=== PATIENT | female | born 1990 | race Caucasian/White ===

== ENCOUNTER 2018-11-24 09:34 | Outpatient (CLI) | payer BC, SELFPAY ==
[2018-11-24 11:12] LABS: Cholesterol 179 mg/dL (50-200); Glucose 81 mg/dL (70-100); HDL Cholesterol 66 mg/dL (40-60); LDL CHOLESTEROL 91 mg/dL (<100); TSH (W/Ref FT4) 2.62 uIU/mL (0.358-3.74); Triglyceride 78 mg/dL (30-150)
== END 2018-11-24 09:54 ==
PROVIDERS: PCP General Practice; Visit Provider General Practice
DX: Z00.00 Encounter for general adult medical examination without abnormal findings (principal); R53.83 Other fatigue; L65.9 Nonscarring hair loss, unspecified
CPT/HCPCS: 36415; 80061; 82947; 83721; 84443

== ENCOUNTER 2019-01-18 16:24 | Outpatient (REF) | payer BC, SELFPAY ==
--- NOTE | 2019-01-18 16:30 | PAPFT_PTH ---
PATIENT: Gabriela Rios LOC: [facility] U#:[id number] AGE/SX: 28/F ROOM: RE01/18/[address]: Stephon Mcduffie MD : [id number] BED: DIS: 01/18/2019 SPEC #: [id number] RECD: 01/18/19 18:19 STATUS: KEERTHINatasha REKristal #: [id number] NEPTALI: 01/18/19 16:[address]: Stephon Mcduffie DEPT: [facility] Cytology RECD BY: Tamia Troy ENTERED: 01/18/19 18:19 SP TYPE: PAPFT OTHR DR: Jordan Donohue Tissues: 1 - CX/ENDOCX FOR PAP SMEARS Procedures: PAP THIN PREP/[facility] Screening Comments: [id number]
== END 2019-01-18 16:44 ==
LOC: LBN 16:24
PROVIDERS: PCP General Practice; Visit Provider Obstetrics & Gynecology
DX: Z12.4 Encounter for screening for malignant neoplasm of cervix (principal)
CPT/HCPCS: 88142

== ENCOUNTER 2019-06-28 11:19 | Outpatient (CLI) | payer BC, SELFPAY ==
[2019-06-28 12:40] LABS: HCG Quant, Pregnancy < 1 mIU/mL (1-3); TSH (W/Ref FT4) 2.16 uIU/mL (0.36-3.74)
[2019-07-01 11:16] LABS: Prolactin 5.5 ng/ml
== END 2019-06-28 11:39 ==
PROVIDERS: PCP General Practice; Visit Provider Obstetrics & Gynecology
DX: N92.0 Excessive and frequent menstruation with regular cycle (principal); N91.2 Amenorrhea, unspecified
CPT/HCPCS: 36415; 84146; 84443; 84702

== ENCOUNTER 2019-12-04 02:18 | Outpatient (CLI) | payer BC, SELFPAY ==
--- NOTE | 2019-12-04 | DI.US_ITS ---
EXAM: US SOFT TISS ABD WALL/LOW BACK CLINICAL HISTORY: UMBILICAL HERNIA, K42.9 TECHNIQUE: Ultrasound performed using standard protocol. COMPARISON: OB ASSESSMENT - WEIGHT/SINDHU from 03/20/2017 FINDINGS: Ultrasound examination of the anterior abdominal wall was obtained to evaluate question umbilical/Per i umbilical palpable abnormality. There is a probable umbilical hernia measuring up to about 3.8 cm in diameter. No definite bowel contents. The hernia appears non reducible and is more prominent on Valsalva imaging. IMPRESSION: Findings suggesting umbilical hernia, likely fat containing, bowel contents not excluded. DATA REPOSITORY:
== END 2019-12-04 02:38 ==
PROVIDERS: PCP Nurse Practitioner Family; Visit Provider Nurse Practitioner Family
DX: K42.9 Umbilical hernia without obstruction or gangrene (principal)
CPT/HCPCS: 76705

== ENCOUNTER 2020-02-14 10:32 | Outpatient (REF) | payer BC, SELFPAY ==
[2020-02-14 11:18] LABS: Glucose,1 Hr (Glucola) 97 mg/dL (80-140)
[2020-02-14 11:31] LABS: Abs Immature Grans 0.01 k/cumm (0.0-0.09); Absolute Basophil Count 0.01 k/cumm (0.0-0.2); Absolute Eosinophil Count 0.06 k/cumm (0.0-0.7); Absolute Lymphocyte Count 1.13 k/cumm (1.2-3.4); Absolute Monocyte Count 0.37 k/cumm (0.11-0.7); Absolute Neutrophil Count 5.36 k/cumm (1.2-6.7); Basophils % 0.1; Eosinophils % 0.9; HCT 41.5 % (36.0-46.0); HGB 13.9 g/dL (12.0-15.5); Immature Grans % 0.1 %; Lymphocytes % 16.3; Mean Corp. HGB Concentration 33.5 g/dL (32.0-36.0); Mean Corpuscular Hemoglobin 28.1 pg (27.0-33.0); Mean Platelet Volume 10.9 fL (8.0-11.0); Monocytes % 5.3; Neutrophils % 77.3; Platelet Count 234 x1000/uL (130-400); RBC 4.94 m/cumm (4.00-5.20); RBC Distribution Width 12.3 % (11.7-14.6); White Blood Cell Count 6.94 k/cumm (4.4-10.8)
[2020-02-14 11:46] LABS: TSH (W/Ref FT4) 1.28 uIU/mL (0.36-3.74)
[2020-02-14 13:48] LABS: *AMPHETAMINES SCREEN URINE Negative (Negative); *BARBITURATES SCREEN URINE Negative (Negative); *BENZODIAZEPINES SCREEN URINE Negative (Negative); Cannabinoids THC POSITIVE (Negative); Cocaine Screen,Urine Negative (Negative); METHADONE URINE SCREEN Negative (Negative); OPIATES URINE SCREEN Negative (Negative)
[2020-02-14 13:49] LABS: Tricyclic Antidepressants Negative (Negative)
[2020-02-17 09:45] LABS: Syphilis Total Ab w/Reflex Nonreactive (Nonreactive)
[2020-02-17 10:45] LABS: Hepatitis B Surface Ag Negative (Negative)
[2020-02-17 11:13] LABS: Hepatitis C Ab w Rflx HCV PCR Negative (Negative)
[2020-02-17 11:52] LABS: HIV-1/2 Ag & Ab Screen Negative (Negative)
[2020-02-17 13:28] LABS: Rubella IgG Ab (UVM) Positive (See Note); Varicella IgG Antibody Negative (See Note)
[2020-02-18 09:10] LABS: Chlamydia Result Negative (Negative); GC Result Negative (Negative)
[2020-02-20 16:49] LABS: Buprenorphine Negative; Norbuprenorphine Negative
== END 2020-02-14 10:52 ==
LOC: LBN 10:32
PROVIDERS: PCP Nurse Practitioner Family; Visit Provider Advanced Practice Midwife
DX: Z34.91 Encounter for supervision of normal pregnancy, unspecified, first trimester (principal); Z11.59 Encounter for screening for other viral diseases; Z11.3 Encounter for screening for infections with a predominantly sexual mode of transmission; Z11.4 Encounter for screening for human immunodeficiency virus [HIV]; Z01.84 Encounter for antibody response examination
CPT/HCPCS: 80307; 82950; 86787; 86803; 86850; 86900; 86901; 87340; 87389; 87491; 87591; 84443; 85025; 86762; 86780; 87086

== ENCOUNTER 2020-02-17 09:18 | Outpatient (CLI) | payer BC, SELFPAY ==
--- NOTE | 2020-02-17 07:00 | DI.US_ITS ---
EXAM: US OB 1ST TRIMESTER CLINICAL HISTORY: ? viability TECHNIQUE: Ultrasound performed using standard protocol. COMPARISON: US US SOFT TISS ABD WALL/LOW BACK from 12/04/2019 FINDINGS: Ob ultrasound was performed utilizing 1st trimester protocol. There is a single viable intrauterine gestation with crown-rump length measurements consistent with gestational age of 11 weeks 4 days and EDC of 09/03/2020. Trophoblastic tissue is unremarkable. heart rate is 173 BPM. Left ovary contains corpus luteum cyst. IMPRESSION: DATA REPOSITORY:
== END 2020-02-17 09:38 ==
PROVIDERS: PCP Nurse Practitioner Family; Visit Provider Obstetrics & Gynecology
DX: Z34.91 Encounter for supervision of normal pregnancy, unspecified, first trimester (principal); Z3A.11 11 weeks gestation of pregnancy; N83.12 Corpus luteum cyst of left ovary
CPT/HCPCS: 76801

== ENCOUNTER 2020-03-13 09:26 | Outpatient (CLI) | payer BC, SELFPAY ==
[2020-03-17 10:25] LABS: AFP 30.4 ng/mL; Calculated age at EDD 30 years; Cigarette smoking status non-Smoker; GA used in risk estimate Dates estimate; INHIBIN 108 pg/mL; IVF Pregnancy No; Initial or repeat testing Initial testing; Insulin dependent diabetes No; Maternal Weight 163 lbs; Number of Fetuses 1; Physician Phone Number 802-748-7300; Prev Down(T21)/Trisomy Pregnan No; Prev Pregnancy w/NTD No; RECOMMENDED FOLLOW UP None.; Results Summary Normal risk; hCG, TOTAL 35.4 IU/mL; hCG, TOTAL MoM 0.77 MoM; uE3 0.65 ng/mL; uE3 MoM 1.29 MoM
== END 2020-03-13 09:46 ==
PROVIDERS: PCP Nurse Practitioner Family; Visit Provider Obstetrics & Gynecology
DX: Z34.91 Encounter for supervision of normal pregnancy, unspecified, first trimester (principal); Z36.89 Encounter for other specified antenatal screening
CPT/HCPCS: 81511

== ENCOUNTER 2020-04-06 01:37 | Outpatient (CLI) | payer BC, SELFPAY ==
--- NOTE | 2020-04-06 08:45 | DI.US_ITS ---
EXAM: US OB 2-3 TRIMESTER CLINICAL HISTORY: Anatomy survey, Z34.90. TECHNIQUE: Transabdominal obstetrical ultrasound performed. COMPARISON: US US OB 1ST TRIMESTER from 02/17/2020 FINDINGS: Transabdominal obstetrical ultrasound performed. FINDINGS: Number of fetuses: One. position: Breech heart rate: 150 bpm. Placental grade: 0-1 Placental location: Anterior. There is a marginal placenta previa. BIOMETRIC DATA: EFW: 270 grms 81% Composite Age: 19 weeks 1 day EDC by US: 08/30/2020 Heart Rate: 150BPM Amniotic fluid index: Amount of fluid is within normal limits. ANATOMICAL SURVEY: Four-chambered heart: Unremarkable. LVOT: Unremarkable. RVOT: Unremarkable. Left-sided stomach: Unremarkable. urinary bladder: Unremarkable. Bilateral kidneys: Unremarkable. Three-vessel cord: Unremarkable. Cord insertion: Unremarkable. Posterior fossa:Unremarkable. ventricles: Unremarkable. nose: Unremarkable. lips: Unremarkable. palate: Unremarkable. spine: Unremarkable. Two arms and two legs: Unremarkable. IMPRESSION: 1. Single live intrauterine gestation as above. 2. There is a marginal placenta previa. Follow-up obstetrical ultrasound is recommended. 3. Normal anatomic survey. DATA REPOSITORY:
== END 2020-04-06 01:57 ==
PROVIDERS: PCP Nurse Practitioner Family; Visit Provider Obstetrics & Gynecology
DX: Z34.82 Encounter for supervision of other normal pregnancy, second trimester (principal)
CPT/HCPCS: 76805

== ENCOUNTER 2020-04-23 13:22 | Outpatient (REF) | payer BC, SELFPAY ==
[2020-04-25 21:29] LABS: SARS-CoV-2 RNA Undetected (Undetected); SARS-CoV-2 Specimen Source Nasopharynx
== END 2020-04-23 13:42 ==
LOC: NCHCN 13:22
PROVIDERS: PCP Nurse Practitioner Family; Visit Provider Nurse Practitioner Family
DX: Z20.828 Contact with and (suspected) exposure to other viral communicable diseases (principal)
CPT/HCPCS: U0003

== ENCOUNTER 2020-06-02 00:38 | Outpatient (CLI) | payer BC, SELFPAY ==
--- NOTE | 2020-06-02 06:30 | DI.US_ITS ---
EXAM: US OB SINDHU WEIGHT CLINICAL HISTORY: growth and SINDHU,F/U MARGINAL PLACENTA PREVIA TECHNIQUE: Ultrasound performed using standard protocol. COMPARISON: US US OB 2-3 TRIMESTER from 04/06/2020 FINDINGS: Ob ultrasound was performed to re-evaluate low-lying placenta seen on prior examination. biome try today is consistent with gestational age of 20 weeks 0 days and EDC of August 25. Marginal pl acenta previa is again noted. There is a normal quantity of amniotic fluid and the SINDHU is 18. heart rate is identified at a rate of 143 BPM IMPRESSION: Persistent marginal placenta previa at 28 weeks gestational age. Appropriate follow-up studies reque sted. DATA REPOSITORY:
== END 2020-06-02 00:58 ==
PROVIDERS: PCP Nurse Practitioner Family; Visit Provider Obstetrics & Gynecology
DX: O44.23 Partial placenta previa NOS or without hemorrhage, third trimester (principal)
CPT/HCPCS: 76816

== ENCOUNTER 2020-06-18 04:37 | Outpatient (CLI) | payer BC, SELFPAY ==
[2020-06-18 09:35] LABS: Abs Immature Grans 0.06 10^3/uL (0.0-0.06); Absolute Basophil Count 0.03 10^3/uL (0.0-0.2); Absolute Eosinophil Count 0.07 10^3/uL (0.0-0.7); Absolute Lymphocyte Count 1.46 10^3/uL (1.2-3.4); Absolute Neutrophil Count 8.87 10^3/uL (1.2-6.7); Basophils % 0.3; Eosinophils % 0.6; HCT 37.5 % (36.0-46.0); HGB 12.2 g/dL (11.2-15.7); Immature Grans % 0.5; Lymphocytes % 13.2; MCH 28.2 pg (27.0-33.0); MCHC 32.5 % (32.0-36.0); MCV 86.8 fL (80-95); MPV 10.3 fL (8.0-11.0); Monocytes % 5.4; Nucleated RBC 0 %; Platelet Count 244 10^3/uL (130-400); RBC 4.32 10^6/uL (3.93-5.22); RDW 12.3 % (11.7-14.6); RDW-SD 39.2 fL; WBC 11.09 10^3/uL (4.4-10.8)
[2020-06-18 09:48] LABS: Glucose,1 Hr (Glucola) 100 mg/dL (80-140)
== END 2020-06-18 04:57 ==
PROVIDERS: PCP Nurse Practitioner Family; Visit Provider Obstetrics & Gynecology
DX: Z34.93 Encounter for supervision of normal pregnancy, unspecified, third trimester (principal); Z3A.28 28 weeks gestation of pregnancy
CPT/HCPCS: 36415; 82950; 85025

== ENCOUNTER 2020-06-30 01:00 | Outpatient (CLI) | payer BC, SELFPAY ==
--- NOTE | 2020-06-30 06:15 | DI.US_ITS ---
EXAM: US OB SINDHU WEIGHT CLINICAL HISTORY: placental location,marginal placenta previa,o44.20. COMPARISON: US US OB SINDHU WEIGHT from 06/02/2020 TECHNIQUE: Transabdominal obstetrical ultrasound was performed. FINDINGS: Sonographic images demonstrate a single intrauterine gestation. Sonographically assessed gestational is: 32 weeks 2 days Estimated date of delivery based on this ultrasound is: 23 August 2020 Estimated date of delivery based upon previous datin+ 4 weeks . heart rate motion is Dopplered at: 141 bpm. Cervical length 6.3 cm. Amniotic fluid index: 22.9 cm. Largest pocket of fluid measures 7.0 cm. Near the upper limit of normal. The placenta is anterior and the tip again is noted to lie directly adjacent to the internal os. IMPRESSION: Stable appearance of marginal placenta previa. Amniotic fluid index is at the upper limits of normal . DATA REPOSITORY:
== END 2020-06-30 01:20 ==
PROVIDERS: PCP Nurse Practitioner Family; Visit Provider Obstetrics & Gynecology
DX: O44.23 Partial placenta previa NOS or without hemorrhage, third trimester (principal); Z3A.32 32 weeks gestation of pregnancy
CPT/HCPCS: 76816

== ENCOUNTER 2020-08-07 04:21 | Outpatient (CLI) | payer BC, SELFPAY ==
--- NOTE | 2020-08-07 06:15 | DI.US_ITS ---
EXAM: US OB SINDHU WEIGHT CLINICAL HISTORY: F/U LOW LYING PLACENTA,O44.42. TECHNIQUE: Transabdominal obstetrical ultrasound performed. COMPARISON: US US OB SINDHU WEIGHT from 06/30/2020 FINDINGS: Transabdominal obstetrical ultrasound performed. FINDINGS: Number of fetuses: One. position: Cephalic. Placental location: Anterior. The placental tip is again noted to lie adjacent to the internal os. It lies 6 mm from the internal os. BIOMETRIC DATA: EFW: 3340 grms 93% Composite Age: 38 weeks 2 days EDC: 08/19/2020 Heart Rate: 157BPM Amniotic fluid index: 22.1 cm. Visually, amount of fluid is within normal limits. IMPRESSION: 1. Single live intrauterine gestation as above. 2. Estimated weight is 3340gms. 3. Amniotic fluid index is 22.1 cm. Visually within normal limits. 4. Stable appearance of the marginal placenta previa. DATA REPOSITORY:
== END 2020-08-07 04:41 ==
PROVIDERS: PCP Nurse Practitioner Family; Visit Provider Obstetrics & Gynecology
DX: O44.23 Partial placenta previa NOS or without hemorrhage, third trimester (principal)
CPT/HCPCS: 76816

== ENCOUNTER 2020-08-07 13:37 | Outpatient (REF) | payer BC, SELFPAY ==
[2020-08-07 17:22] LABS: *AMPHETAMINES SCREEN URINE Negative (Negative); *BARBITURATES SCREEN URINE Negative (Negative); *BENZODIAZEPINES SCREEN URINE Negative (Negative); Cannabinoids THC Negative (Negative); Cocaine Screen,Urine Negative (Negative); METHADONE URINE SCREEN Negative (Negative); OPIATES URINE SCREEN Negative (Negative)
[2020-08-07 17:23] LABS: Tricyclic Antidepressants Negative (Negative)
[2020-08-14 09:22] LABS: Buprenorphine Negative; Norbuprenorphine Negative
== END 2020-08-07 13:57 ==
LOC: LBN 13:37
PROVIDERS: PCP Nurse Practitioner Family; Visit Provider Obstetrics & Gynecology
DX: Z34.93 Encounter for supervision of normal pregnancy, unspecified, third trimester (principal)
CPT/HCPCS: 80307

== ENCOUNTER 2020-08-12 02:09 | Outpatient (CLI) | payer BC, SELFPAY ==
[2020-08-13 15:29] LABS: SARS-CoV-2 RNA Not Detected (NotDetected); SARS-CoV-2 RNA Source Nasal/Nares
== END 2020-08-12 02:29 ==
PROVIDERS: PCP Nurse Practitioner Family; Visit Provider Obstetrics & Gynecology
DX: Z11.59 Encounter for screening for other viral diseases (principal); Z01.818 Encounter for other preprocedural examination
CPT/HCPCS: U0003

== ENCOUNTER 2020-08-17 08:57 | Inpatient (IN) | payer BC, SELFPAY ==
[2020-08-17] VITALS (8 sets, daily range): BP systolic 105–117; BP diastolic 58–73; PULSE 68–93; RESP 16–18; TEMP 36.4–37; O2SAT 96–99
--- NOTE | 2020-08-17 09:11 | W.PM.OBHPL1 ---
Date of service: 08/17/20 Time of Service: 11:00 Assessment and Plan Assessment and plan (1) Marginal placenta previa: Status: Acute Assessment and plan: Plan to proceed with primary section at term. Risks of surgery include hemorrhage, infection and injury to other organs such as bowel bladder. The patient was counseled on increased risk of hemorrhage related to a placenta previa. We discussed intraoperative interventions may be required including need for additional uterotonic medication, low tamponade and hysterectomy. We discussed the possibility of blood transfusion and patient is agreeable to this. We will plan to crossmatch blood prior to surgery. All questions were answered to the patient's satisfaction and consent for surgery was obtained. OB-HPI Labor/Delivery History of Present Illness Reason for Visit: DELIVERY Chief Complaint: Scheduled Section , Inidcation for Scheduled : Placenta Previa .. JULIETA Calculator Estimated Delivery Date Method Current WG Current Estimate 09/04/20 LMP (Certain) 37w 3d Other Estimates 09/03/20 Ultrasound #1 37w 4d History of Present Expected Delivery Route/Plan - undecided MD or CNM FOB - Ana Luisa Mcelroy Varicella Non-Immune, offer vaccine Specific Issues/Plan 1. Previous macrosomic infants x 2. Early GTT WNL@ 97 2. Umbilical hernia 3. Nausea - using marijuana for control. Zofran e-scribed with counseling to stop use 4. Declines [place] test, F previously neg. desires Quad screen 5. Varicella Non-Immune Assessment: History Reviewed & Current Narrative: 30-year-old G3, P2 at 37.3 weeks gestation presents today for scheduled section. The patient has had an uncomplicated course with the exception of a marginal placenta previa. Last ultrasound was just over 1 week ago and demonstrated the placenta to be within 6 mm of the internal os. The patient has been counseled on clinical considerations and elected to proceed with primary section. Informed Consent Informed Consent: Section Delivery and Regional Anesthesia Review of Systems All systems reviewed & are unremarkable except as noted in HPI and below COUNT INCLUDES THE [facility] Medical History (Updated 06/19/20 @ 16:07 by Sandra Montes DO) Asthma seasonal asthma Asthma childhod - no symptoms now. Constipation longstanding. 12/2013 advised stool softeners/senakot during . Contraception Depo-Provera after the of her son. Changed OCPs for 2018. Well-tolerated. Family history of diabetes mellitus type I Daughter dx 2yo Family history of diabetes mellitus type I (03/06/17) daughter. 2yo. Migraine Patient is a currently breast-feeding mother (05/09/17) Umbilical hernia without obstruction and without gangrene Surgical History Tonsillectomy wisdom teeth extraction Family History Father , lung Personal history of malignant neoplasm Hyperlipidemia Myocardial infarction Mother No problems noted. Daughter Diabetes Type 1 DM. 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 Date GA/Weeks # Outcome Route Wgt Sex Labor Lgth Anesthesia Location Prov Complic 06/17/14 Successful vaginal 9 lb 1 oz Female [facility] Dr[facility] Champion 03/29/17 39 No Successful vaginal 9 lb 5 oz Male 3 hours madelyn Champion Delivery Date: 06/17/14 stripping of membranes Eulalia Mitchell Delivery Date: 03/29/17 IOL due to macrosomia Eulalia Mitchell Meds Home Medications and Allergies Home Medications Medication Instructions Recorded Confirmed Type prenat.vits,codey,zmi-sdeb-mcfkt 1 tab PO DAILY 01/06/20 08/17/20 History Allergies Allergy/AdvReac Type Severity Reaction Status Date / Time orange juice Allergy Itching Verified 08/17/20 09:59 Exam Constitutional Constitutional: no acute distress Detailed Labor and Delivery Exam Anderson Score: Cervical Points Exam 0 1 2 3 Dilation Closed 1-2cm 3-4 cm 5-6cm Effacement 0-30% 40-50% 60-70% 80% Consistency Firm Medium Soft Station -3 -2 -1,0 +1,+2 Position Posterior Mid Anterior Neck Exam Neck Exam: Normal Respiratory Exam Respiratory Exam: Normal (Clear to auscultation bilaterally) Cardiovascular Exam Cardiovascular Exam: Normal Detail Cardiovascular Exam Comments: Regular rate and rhythm Results Results Group Beta Strep: Negative Blood Type: A+ Rubella Status: Immune Varicella Immunity: Nonimmune Risk Assessment Risk for Shoulder Dystocia Historical/Initial OB: NEGATIVE FOR: Pelvic Abnormality, Pre- BMI>30, Previous Shoulder Dystocia or Previous Macrosomia Increased Risk?: Yes Risk for Pre-Eclampsia Daily Dose ASA Indicated: No Yes, if one or more: NEGATIVE FOR: Hx Pre-E/Gest HTN, Chronic HTN, Multiple Gestation, Pre-gestational DM, Renal Disease, Systemic Lupus or APA Syndrome Yes, if 2 or more: NEGATIVE FOR: Nulliparity, Age>= 35 yrs, >10yr btwn pregnancies, BMI>30, ethinicty, Mother/Sister w/ Pre-E or Previous IUGR Risk for Post- Hemorrhage Initial: NEGATIVE FOR: Multiple Gestation, Previous PPH, Known Clotting Deficiency, Grand Multiparity or Anticoagulation At Risk?: No Risks Reviewed Risks Reviewed Upon Admission: Yes
[2020-08-17] MEDS: Lactated Ringers 1,000 ML 200 ML IV (10:37)
[2020-08-17 10:39] LABS: HCT 35.6 % (36.0-46.0); HGB 11.8 g/dL (11.2-15.7); MCH 27.1 pg (27.0-33.0); MCHC 33.1 % (32.0-36.0); MCV 81.7 fL (80-95); MPV 10.6 fL (8.0-11.0); Platelet Count 238 10^3/uL (130-400); RBC 4.36 10^6/uL (3.93-5.22); RDW 12.5 % (11.7-14.6); RDW-SD 36.8 fL; WBC 9.99 10^3/uL (4.4-10.8)
[2020-08-17] MEDS: Normal Saline Flush 10 ML SYR IVP (10:43)
[2020-08-17] MEDS: Sodium Citrate 30 ML CUP PO (12:58)
[2020-08-17] MEDS: ceFAZolin 2 GM/50 ML BAG IVPB (13:05)
--- NOTE | 2020-08-17 16:38 | W.PM.OP ---
Date of service: 08/17/20 Time of Service: 16:38 Operative Note Operative Note DATE OF PROCEDURE: 08/17/20 PRE-OP DIAGNOSIS: Marginal placenta previa at 37 weeks POST-OP DIAGNOSIS: same PROCEDURE: Primary low transverse section SURGEON: Stephon Mcduffie ASSISTING SURGEON: Gabbi Aleman ANESTHESIA: spinal ESTIMATED BLOOD LOSS: 800 PATHOLOGY: none sent COMPLICATIONS: None Patient was transported to: floor Patient's condition: stable Findings: 1. Delivered a liveborn male in double footling presentation. 2. Anterior marginal placenta previa Procedure Description: The patient was taken to the operating room and after adequate spinal anesthesia was obtained the patient was placed in supine position with a left lateral tilt. The patient was prepped and draped in the usual sterile manner. A Pfannenstiel incision was made with #10 blade scalpel. Sharp dissection was carried down to the underlying layer of fascia. The fascia was incised in midline and the incision was extended laterally in either direction with Schultz scissors. The superior and inferior aspects of the fascial incision were dissected off the underlying layer of rectus muscles using both blunt and sharp dissection. The rectus muscles were divided in the midline along the linea alba. The peritoneum was entered with blunt digital dissection and the peritoneal incision was extended superiorly and inferiorly with blunt and sharp dissection. The Ravindra retractor was placed with good visualization of the uterus. The vesicouterine flap was tented up with pickups and incised sharply with Schultz scissors and the incision was carried laterally direction with Schultz scissors. The bladder flap was then developed digitally. There were large tortuous vessels along the anterior surface of the uterus. Prior to hysterotomy these were ligated proximally and distally with #1 chromic. A low transverse incision was made with a scalpel. The amnion was entered bluntly with digital dissection. Dissection was carried through the inferior portion of the placenta. The fetus was found in double footling breech presentation. Infant was delivered atraumatically. The mouth and nose were suctioned. The cord was clamped and cut and the infant was handed off to the awaiting inventory representative. The placenta was manually extracted. The uterus was cleared of all clots and debris. The hysterotomy was closed with a running locked stitch of #1 chromic. A second imbricating layer of #1 chromic in a Lambert stitch was used to complete the repair and achieved hemostasis. The vesicouterine flap was reapproximated with a running stitch of 3-0 Vicryl. The peritoneum was closed with a running stitch of 2-0 Vicryl. The fascia was closed with a running 0 Vicryl. The subcutaneous tissues were closed with interrupted sutures of 3-0 Vicryl and the skin was closed with a running subcuticular stitch of 4 Monocryl. Dermabond was applied. The procedure was concluded at this point. Sponge, lap and needle counts were correct at the conclusion of the procedure. The patient was transferred to PACU in stable condition.
[2020-08-17] MEDS: Ketorolac 30 MG/ML VIAL IVP (20:00)
[2020-08-18] VITALS: BP 106/63; PULSE 78; RESP 18; TEMP 37; O2SAT 96
[2020-08-18] MEDS: Ketorolac 30 MG/ML VIAL IVP ×3 (02:05→14:44)
[2020-08-18 05:00] VITALS: BP 105/65; PULSE 75; RESP 18; TEMP 36.9; O2SAT 97
[2020-08-18] MEDS: Acetaminophen 325 MG TAB 650 MG PO (06:40)
[2020-08-18 07:43] LABS: Abs Immature Grans 0.07 10^3/uL (0.0-0.06); Absolute Basophil Count 0.02 10^3/uL (0.0-0.2); Absolute Eosinophil Count 0.11 10^3/uL (0.0-0.7); Absolute Lymphocyte Count 1.34 10^3/uL (1.2-3.4); Absolute Monocyte Count 0.82 10^3/uL (0.1-0.8); Basophils % 0.2; HCT 32.3 % (36.0-46.0); HGB 10.4 g/dL (11.2-15.7); Immature Grans % 0.6; Lymphocytes % 11.9; MCH 26.9 pg (27.0-33.0); MCHC 32.2 % (32.0-36.0); MCV 83.5 fL (80-95); Monocytes % 7.3; Nucleated RBC 0 %; Platelet Count 204 10^3/uL (130-400); RBC 3.87 10^6/uL (3.93-5.22); RDW 12.8 % (11.7-14.6); RDW-SD 38.5 fL
[2020-08-18 07:59] LABS: Absolute Neutrophil Count 8.93 10^3/uL (1.2-6.7)
[2020-08-18 08:30] VITALS: BP 107/66; PULSE 72; RESP 16; TEMP 36.6; O2SAT 98
[2020-08-18] MEDS: Normal Saline Flush 10 ML SYR IVP ×2 (08:30→14:47)
--- NOTE | 2020-08-18 11:39 | OBPPV_ITS ---
Date of service: 08/18/20 Time of Service: 11:39 Assessment and Plan Assessment and plan (1) Status post primary low transverse section: Status: Acute Assessment and plan: Postoperative day #1 status post primary low transverse section for marginal placenta previa at 37 weeks and breech presentation. She is doing well. She will continue routine postoperative care. She will increase her ambulation, Osman catheter has been discontinued. Continue to breast-feed and work on pain control. Subjective Subjective Interval history: Patient seen in the center today postoperative day #1 status post primary low transverse section for marginal previa and breech presentation. She is doing well. She does have some incisional tenderness and tenderness at the left lower quadrant. Patient comments: Incisional pain, Tolerating diet and Flatus present [place] baby status: Doing well, Nursing well and Strong Bonding Observed feeding status: Exclusively breast feeding Exam Physical Exam Vital signs: Temp Pulse Resp BP Pulse Ox 97.9 F 72 16 107/66 98 08/18/20 08:30 08/18/20 08:30 08/18/20 08:30 08/18/20 08:30 08/18/20 08:30 Constitutional Constitutional: no acute distress HEENT Exam HEENT Exam: Normal Respiratory Exam Respiratory Exam: Normal Cardiovascular Exam Cardiovascular Exam: Normal Abdominal Exam Abdomen: Tender Comments: Incision clean, dry, intact, dressed. Fundal Exam Fundus: Below Umbilicus and Firm Extremities Exam Extremity Exam: Normal; negative Calf Tenderness and Edema Skin Exam Skin Exam: Normal Detailed Neurological Exam Neurological: Present alert and oriented X3 Results Hemoglobin/Hematocrit: Hgb 10.4 g/dL (11.2-15.7) L 08/18/20 07:25 Hct 32.3 % (36.0-46.0) L 08/18/20 07:25 Abnormal Lab Findings: Abnormal Labs 08/17/20 08/18/20 10:29 07:25 WBC 11.30 H RBC 3.87 L Hgb 10.4 L Hct 35.6 L 32.3 L MCH 26.9 L Absolute Neutrophils 8.93 H Absolute Monocytes 0.82 H
[2020-08-18] MEDS: oxyCODONE 5 mg/Acetaminophen 325 mg TAB PO ×4 (11:44→23:50)
[2020-08-18] MEDS: Docusate Sodium 100 MG CAP PO (15:45)
[2020-08-18 16:00] VITALS: BP 108/57; PULSE 79; RESP 16; TEMP 36.8; O2SAT 99
[2020-08-18 20:00] VITALS: BP 110/65; PULSE 75; RESP 16; TEMP 37; O2SAT 99
[2020-08-18] MEDS: Ibuprofen 600 MG TAB PO (20:45)
[2020-08-18 23:25] VITALS: BP 113/67; PULSE 87; RESP 16; TEMP 36.8; O2SAT 96
[2020-08-19] MEDS: Ibuprofen 600 MG TAB PO ×4 (02:50→21:04)
[2020-08-19 03:00] VITALS: BP 108/66; PULSE 77; RESP 16; TEMP 36.8; O2SAT 96
[2020-08-19] MEDS: oxyCODONE 5 mg/Acetaminophen 325 mg TAB PO ×6 (03:55→23:50)
[2020-08-19] MEDS: Docusate Sodium 100 MG CAP PO ×2 (07:39→19:46)
[2020-08-19 08:16] VITALS: BP 117/73; PULSE 78; RESP 16; TEMP 36.5; O2SAT 97
--- NOTE | 2020-08-19 08:22 | W.PM.OBPNV1 ---
Date of service: 08/19/20 Time of Service: 08:22 Subjective Subjective Interval history: POD 2 PCD. Postop course uncomplicated Exam Physical Exam Vital signs: Temp Pulse Resp BP Pulse Ox 98.2 F 77 16 108/66 96 08/19/20 03:00 08/19/20 03:00 08/19/20 03:00 08/19/20 03:00 08/19/20 03:00 Results Hemoglobin/Hematocrit: Hgb 10.4 g/dL (11.2-15.7) L 08/18/20 07:25 Hct 32.3 % (36.0-46.0) L 08/18/20 07:25 Abnormal Lab Findings: Abnormal Labs 08/17/20 08/18/20 10:29 07:25 WBC 11.30 H RBC 3.87 L Hgb 10.4 L Hct 35.6 L 32.3 L MCH 26.9 L Absolute Neutrophils 8.93 H Absolute Monocytes 0.82 H
[2020-08-19 13:27] VITALS: BP 118/75; PULSE 91; RESP 18; TEMP 36.7; O2SAT 96
--- NOTE | 2020-08-19 14:35 | W.PM.OBPNV1 ---
Date of service: 08/19/20 Time of Service: 14:35 Assessment and Plan Assessment and plan (1) Status post primary low transverse section: Status: Acute Assessment and plan: POD2. Successfully . Pain is manageable with Ibuprofen and Percocet. Will continue to encourage OOB with assist. Plan discharge for 08/20/20. Subjective Subjective Interval history: POD2 PCS for marginal previa. well. Pain is tolerable but pt has not yet been able to perform ADLs. Weak and unable to continue walk outside of room today. I recommended that she remain in hosp till pain has improved and she feels better able to perform ADLs. She is agreeable to the plan. Exam Physical Exam Vital signs: Temp Pulse Resp BP Pulse Ox 98.1 F 91 H 18 118/75 96 08/19/20 13:27 08/19/20 13:27 08/19/20 13:27 08/19/20 13:27 08/19/20 13:27 Vital Signs Reviewed: Yes Constitutional Constitutional: no acute distress HEENT Exam HEENT Exam: Not Done Neck Exam Neck Exam: Normal (visual inspection) Respiratory Exam Respiratory Exam: Normal Cardiovascular Exam Cardiovascular Exam: Normal Abdominal Exam Abdomen: Tender (to palpation) Fundal Exam Fundus: Below Umbilicus and Firm Rectal Exam Rectal Exam: Not Done Extremities Exam Extremity Exam: Normal and Edema (1+, non-pitting edema.) Back/Spine/Pelvis Exam Back Exam: Normal Skin Exam Skin Exam: Normal (Pfannenstiel incision C/D/I. Telfa adherent to L lateral margin. ) Neurological Exam Neurological Exam: Normal Psychiatric Exam Psychiatric Exam: Normal Results Hemoglobin/Hematocrit: Hgb 10.4 g/dL (11.2-15.7) L 08/18/20 07:25 Hct 32.3 % (36.0-46.0) L 08/18/20 07:25 Abnormal Lab Findings: Abnormal Labs 08/17/20 08/18/20 10:29 07:25 WBC 11.30 H RBC 3.87 L Hgb 10.4 L Hct 35.6 L 32.3 L MCH 26.9 L Absolute Neutrophils 8.93 H Absolute Monocytes 0.82 H
[2020-08-19 16:45] VITALS: BP 120/73; RESP 16; TEMP 36.5; O2SAT 97
[2020-08-19 20:00] VITALS: BP 123/74; PULSE 84; RESP 16; TEMP 36.9; O2SAT 97
[2020-08-19 23:00] VITALS: BP 119/77; PULSE 91; RESP 16; TEMP 36.6; O2SAT 97
[2020-08-20] MEDS: Ibuprofen 600 MG TAB PO ×2 (03:05→09:34)
[2020-08-20 03:50] VITALS: BP 116/69; PULSE 85; RESP 16; TEMP 36.7; O2SAT 96
[2020-08-20] MEDS: oxyCODONE 5 mg/Acetaminophen 325 mg TAB PO ×3 (04:10→12:57)
[2020-08-20 08:00] VITALS: BP 117/76; PULSE 89; RESP 16; TEMP 36.7; O2SAT 98
[2020-08-20] MEDS: Docusate Sodium 100 MG CAP PO (08:20)
--- NOTE | 2020-08-20 10:45 | W.PM.PROGNOT ---
Date of Service Date of service: 08/20/20 Time of Service: 10:45 Assessment and Plan Assessment and plan (1) Status post primary low transverse section: Status: Acute Assessment and plan: Postoperative day #3 status post primary low transverse section for marginal placenta previa at 37 weeks and breech presentation. Doing well. Normal healing. Routine postoperative care. Anticipate discharge home today. Subjective Subjective Patient reports: still having pain, pain is less, tolerating a regular diet, voiding w/o difficulty and flatus; denies diarrhea, nausea and vomiting Exam Narrative Exam Narrative: Patient seen and examined this morning. She has been ambulating. She does complain of a modest amount of incisional pain particularly at the left aspect of the incision. She is otherwise doing well. She is tolerating a regular diet. She does have the normal crampiness consistent with uterine involution. She has no fevers or chills. Const General: cooperative, healthy appearing, comfortable and no acute distress Nutritional Appearance: average body habitus Eyes General: appearance normal, both eyes and all related structures Resp Effort & Inspection: normal respiratory effort Cardio Rate: regular rate Rhythm: regular rhythm Pulses: brachial pulses present GI Inspection: normal to inspection Palpation: soft, not firm, no guarding, tender and No ascites Other: Incision is clean dry and intact. There is no surrounding erythema, fluctuance, ecchymosis Skin General skin exam: no rashes or lesions noted Neuro General: patient alert and patient oriented x3 Sensory Exam: no sensory deficits noted Extrem General: normal to inspection, no calf tenderness and edema (1+) Laterality: bilateral Psych Appearance: grossly normal and well kempt Mental Status: mental status grossly normal Speech and Movement: speech and movement normal Mood: congruent mood Attitude: cooperative Thought Process: normal Thought Content: normal Insight: insight good Judgment: judgment good Other: Somewhat tearful today due to apprehension about going home, pain control, and the healing process of her section. Objective Last Vital Signs Temp 98.1 F 08/20/20 08:00 Pulse 89 08/20/20 08:00 Resp 16 08/20/20 08:00 BP 117/76 08/20/20 08:00 Pulse Ox 98 08/20/20 08:00
--- NOTE | 2020-08-20 10:49 | DSE_ITS ---
Date of service: 08/20/20 DS: Diagnosis Discharge Diagnosis (1) Status post primary low transverse section: Status: Acute (2) Marginal placenta previa: Status: Acute Discharge Plan Disposition Condition: Good Discharge Details Reason For Visit: DELIVERY Admit Date/Time: 08/17/20 08:57 Admit Provider: Stephon Mcduffie Attending Provider: Stephon Mcduffie Primary Care Provider: Matheus Wilder Hospital Course Hospital Course: Patient was admitted for primary low transverse section on September 16 due to marginal previa at 37 weeks. She was found to have breech presentation as well. She had uncomplicated postoperative course. She was discharged home ambulating, tolerating regular diet and oral pain medication with stable vital signs on postoperative day #3. She will be breast-feeding her male Home Meds and New Rx's Prescriptions: New acetaminophen [Tylenol] 325 mg Tablet 650 mg PO Q4H PRN PRNQty: 30 RF: 0 oxycodone-acetaminophen 5-325 mg Tablet 1 tab PO Q4H PRN PRNQty: 12 RF: 0 docusate sodium [Colace] 100 mg Capsule 100 mg PO BID PRN PRNQty: 30 RF: 0 ibuprofen [IBU] 600 mg Tablet 600 mg PO Q6H PRN PRNQty: 30 RF: 1 Continued prenat.vits,codey,nkd-whgt-nhrcz Tablet 1 tab PO DAILY RF: 0 Discharge Instructions Stand Alone Forms: BC Discharge Instruc Activity:: PElvic rest, no heavy lifting Activity:: Activity as Tolerated Equipment/Supplies:: No Equipment Needed Diet:: As Tolerated OB:DS Summary Summary Episiotomy Description: None Laceration Description: Uterine Laceration Extension: N/A Contraception Discussed Contraception Discussed: Yes, Gender-Baby A: Male weight: 7 lb 4.933 oz Status at Discharge Functional status at discharge: independent ambulation Overall status at discharge: patient is progressing back to baseline Mental Status: mental status grossly normal Speech and Movement: speech and movement normal Mood: congruent mood Affect: normal affect Exam Physical Exam Vital signs: Temp Pulse Resp BP Pulse Ox 98.1 F 89 16 117/76 98 08/20/20 08:00 08/20/20 08:00 08/20/20 08:00 08/20/20 08:00 08/20/20 08:00 Constitutional Constitutional: no acute distress Comments: See full physical examination progress note dated [facility] Medical History Asthma seasonal asthma Asthma childhod - no symptoms now. Constipation longstanding. 12/2013 advised stool softeners/senakot during . Contraception Depo-Provera after the of her son. Changed OCPs for 2018. Well- tolerated. Family history of diabetes mellitus type I Daughter dx 2yo Family history of diabetes mellitus type I (03/06/17) daughter. 2yo. Migraine Patient is a currently breast-feeding mother (05/09/17) Umbilical hernia without obstruction and without gangrene Surgical History Status post primary low transverse section Tonsillectomy wisdom teeth extraction Family History Father , lung Personal history of malignant neoplasm Hyperlipidemia Myocardial infarction Mother No problems noted. Daughter Diabetes Type 1 DM. 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 Date GA/Weeks # Outcome Route Wgt Sex Labor Lgth Anesthes ia Location Prov Complic 06/17/14 Successful vaginal 9 lb 1 oz Female madelyn Champion 03/29/17 39 No Successful vaginal 9 lb 5 oz Male 3 hours madelyn Champion Delivery Date: 06/17/14 stripping of membranes Eulalia Mitchell Delivery Date: 03/29/17 IOL due to macrosomia Eulalia Mitchell DS: Data Vitals/I&O Vitals and I&O: Vital Signs Temperature 98.1 F 08/20/20 08:00 Temperature Source Oral 08/17/20 15:20 Pulse 89 08/20/20 08:00 Pulse Rhythm Regular 08/20/20 08:00 Respiratory Rate 16 08/20/20 08:00 Respiratory Depth Normal 08/17/20 10:13 Blood Pressure 117/76 08/20/20 08:00 Blood Pressure Mean 89 08/20/20 08:00 Pulse Oximetry 98 08/20/20 08:00 Oxygen Delivery Method Room Air 08/17/20 15:20 Oxygen Flow Rate 0 08/17/20 15:20 Pain Level 5 08/20/20 09:34 Intake & Output 08/19/20 08/19/20 08/20/20 11:59 23:59 11:59 Intake Total 600 / 1800 1200 / 1800 300 / 300 Balance 600 / 1800 1200 / 1800 300 / 300 Intake: Oral 600 / 1800 1200 / 1800 300 / 300 Other: Urine Color Yellow Yellow Yellow
== END 2020-08-20 14:45 | disposition home or self-care (01) | DRG 787 ==
PROVIDERS: Admitting Provider Obstetrics & Gynecology; PCP Nurse Practitioner Family; Visit Provider Obstetrics & Gynecology
PROC: 10D00Z1 Extraction of Products of Conception, Low, Open Approach (ICD-10-PCS; CPT 59514; principal; 2020-08-17 11:00)
DX: O44.23 Partial placenta previa NOS or without hemorrhage, third trimester (principal); O99.354 Diseases of the nervous system complicating childbirth; Z37.0 Single live birth; Z3A.37 37 weeks gestation of pregnancy; O32.1XX0 Maternal care for breech presentation, not applicable or unspecified; K59.00 Constipation, unspecified; G43.909 Migraine, unspecified, not intractable, without status migrainosus; O99.62 Diseases of the digestive system complicating childbirth; K42.9 Umbilical hernia without obstruction or gangrene; O75.89 Other specified complications of labor and delivery
CPT/HCPCS: 59514; 36415; 85027; 86850; 86900; 86901; 99232; 85025; J0690; J1885; J2405; J2590; J3010

== ENCOUNTER 2020-10-29 15:52 | Outpatient (REF) | payer BC, SELFPAY ==
[2020-10-29 17:51] LABS: HCT 42.9 % (36.0-46.0); HGB 13.5 g/dL (11.2-15.7); MCH 25.8 pg (27.0-33.0); MCHC 31.5 % (32.0-36.0); MPV 10.6 fL (8.0-11.0); Platelet Count 308 10^3/uL (130-400); RBC 5.23 10^6/uL (3.93-5.22); RDW 13.3 % (11.7-14.6); RDW-SD 39.7 fL; WBC 6.09 10^3/uL (4.4-10.8)
[2020-10-29 18:15] LABS: Anion Gap 9.7 mmol/L (3-11); BUN 14 mg/dL (7-18); CO2 29.3 mmol/L (21.0-32.0); CREATININE 0.9 mg/dL (0.55-1.02); Calcium 9.9 mg/dL (8.5-10.1); Chloride 107 mmol/L (98-107); Glucose 92 mg/dL (74-106); Potassium 4.7 mmol/L (3.5-5.1); Sodium 146 mmol/L (136-145); TSH (W/Ref FT4) 2.24 uIU/mL (0.36-3.74)
== END 2020-10-29 15:53 | disposition home or self-care (01) ==
LOC: NCHCN 15:52
PROVIDERS: PCP Nurse Practitioner Family; Visit Provider Nurse Practitioner Family
DX: R55 Syncope and collapse (principal)
CPT/HCPCS: 80048; 85027; 84443

== ENCOUNTER 2021-11-11 17:25 | Outpatient (REF) | payer BC, SELFPAY ==
--- NOTE | 2021-11-11 16:00 | PAPFT_PTH ---
PATIENT: Gabriela Rios LOC: [facility] U#:[id number] AGE/SX: 31/F ROOM: RE11/11/[address]: Hawa Bourne MD : 1990 BED: DIS: 11/11/2021 SPEC #: [id number] RECD: 11/11/21 18:24 STATUS: MIGUEL ANGEL REKristal #: [id number] NEPTALI: 11/11/21 16:[address]: Hawa Bourne DEPT: [facility] Cytology RECD BY: Tamia Troy ENTERED: 11/11/21 18:24 SP TYPE: PAPFT OTHR DR: Matheus Wilder Tissues: 1 - CX/ENDOCX FOR PAP SMEARS Procedures: PAP THIN PREP/UVM Screening HPV DNA PROBE Comments: [id number]
== END 2021-11-11 17:26 | disposition home or self-care (01) ==
LOC: LBN 17:25
PROVIDERS: PCP Nurse Practitioner Family; Visit Provider Obstetrics & Gynecology
DX: Z12.4 Encounter for screening for malignant neoplasm of cervix (principal); Z11.51 Encounter for screening for human papillomavirus (HPV)
CPT/HCPCS: 88142; 87624

== ENCOUNTER 2021-11-19 12:43 | Outpatient (REF) | payer BC, SELFPAY ==
[2021-11-19 18:33] LABS: HCT 41.2 % (36.0-46.0); MCH 26.5 pg (27.0-33.0); MCHC 31.6 % (32.0-36.0); MCV 84.1 fL (80-95); Platelet Count 267 10^3/uL (130-400); RDW 12.5 % (11.7-14.6); RDW-SD 38.4 fL; WBC 5.38 10^3/uL (4.4-10.8)
[2021-11-19 18:48] LABS: Iron 82 ug/dL (50-170); Total Iron Binding Capacity 365 ug/dL (250-450); Transferrin Sat 22 % (15-50)
[2021-11-19 18:54] LABS: Anion Gap 6.9 mmol/L (3-11); BUN 16 mg/dL (7-18); CO2 28.1 mmol/L (21.0-32.0); CREATININE 0.8 mg/dL (0.55-1.02); Calcium 8.8 mg/dL (8.5-10.1); Chloride 106 mmol/L (98-107); Ferritin 19 ng/mL (8-252); Glucose 83 mg/dL (74-106); Potassium 4.6 mmol/L (3.5-5.1); Sodium 141 mmol/L (136-145); TSH (W/Ref FT4) 1.35 uIU/mL (0.36-3.74)
== END 2021-11-19 12:44 | disposition home or self-care (01) ==
LOC: NCHCN 12:43
PROVIDERS: PCP Nurse Practitioner Family; Visit Provider Nurse Practitioner Family
DX: Z00.00 Encounter for general adult medical examination without abnormal findings (principal); R55 Syncope and collapse; G25.81 Restless legs syndrome
CPT/HCPCS: 80048; 85027; 82728; 83540; 83550; 83735; 84443

== ENCOUNTER 2022-08-27 14:49 | Emergency (ER) | payer BC, SELFPAY ==
[2022-08-27 14:54] VITALS: BP 120/72; PULSE 92; RESP 16; TEMP 36.7; O2SAT 100
--- NOTE | 2022-08-27 15:00 | DI.CT_ITS ---
Exam(s) CT ABDOMEN PELVIS W EXAM: CT ABDOMEN PELVIS W CLINICAL HISTORY: lower left abdominal pain TECHNIQUE: Imaging Protocol: Axial computed tomography images with coronal and sagittal reformatted images were created and reviewed CONTRAST MATERIAL: Intravenous: Omnipaque 350 Contrast volume:98 mL Oral: No COMPARISON: No exams were available for comparison FINDINGS: ABDOMEN: Lung Bases: Normal where visualized. Liver: Normal density. There is a well-circumscribed 1.3 cm cyst in the liver. Portal, Superior Mesenteric, and Splenic Veins: Unremarkable. Gallbladder and Biliary Tract: No radiodense calculus or dilation. Pancreas: Normal density, no abnormal calcifications or inflammatory process. Spleen: Normal. Adrenals: No masses seen. Kidneys: Normal size, contour and axis. No radiodense stones or obstructive uropathy. There are tiny hypodensities in the inferior pole of the right kidney. They are too small for further characterizat ion but likely reflect small cysts. Abdominal Aorta: Abdominal portion non-dilated. 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 Bowel: No obstruction or bowel wall thickening. The appendix measures 8 mm in diameter. No Cris appe ndiceal inflammation is seen. There is air and fluid seen within the appendix. No appendicoliths is present. Peritoneal Cavity: There is a small amount of free fluid in the pelvis. No free air. Lymph Nodes: Within normal limits. Bones: Within normal limits for the patient's age. Soft Tissues: Unremarkable. PELVIS: Bladder: Symmetric distention, no gross wall thickening. Reproductive Organs: There is a complex cystic lesions seen in the midline pelvis measuring 6.8 x 5.1 x 5.3 cm. It does appear to be contiguous with the left ovarian vessels and may be ovarian in origi n. The right ovary is visualized in the normal location. Patient reportedly status post hysterectom y Lymph Nodes: Within normal limits. Bones: Within normal limits for the patient's age. IMPRESSION: 1. Complex 6.9 cm cystic lesion in the midline pelvis which may arise from the left ovary. This may represent a hemorrhagic cyst but ovarian torsion or endometrial mass should also be considered. Pelv ic ultrasound should be considered for further evaluation. 2. Appendix is borderline enlarged measuring 8 mm. There is however air in fluid seen within the jackie endix and no Cris appendiceal for changes are seen. Early appendicitis cannot be excluded. Follow a s clinically appropriate. 3. Small amount of free fluid in the pelvis. 4. Status post hysterectomy. RADIATION DOSE DELIVERED: 853.32mGy.cm Total DLP DATA REPOSITORY: All CT scans at this facility are submitted to the National Radiology Data Registry (NRDR) Dose Index Registry (DIR) with the [employer] (ACR). RADIATION OPTIMIZATION: All CT scans at this facility use at least one of these dose optimization te chniques: automated exposure control; mA and/or kV adjustment per patient size (includes targeted exa ms where dose is matched to clinical indication); or iterative reconstruction.
--- NOTE | 2022-08-27 15:06 | W.ED.GENAD ---
Discharge Plan Disposition Condition: Stable Discharge Details Chief Complaint: Abd Prob Clinical Impression: Enlarged ovary, Abdominal pain Primary Care Provider: Nargis Wilder RN,[facility] ED Provider: Александр Chaney Home Meds and New Rx's Prescriptions: No Action escitalopram oxalate 20 mg tablet 1 tab PO DAILY Label Comments: TAKE ONE TABLET BY MOUTH EVERY DAY Medical Decision Making 32 yo female who denies chronic medical problems, has had a hysterectomy, comes in with cc of 2 days of sharp lower abdominal pain. She had the flu last week per patient and had a fever then along with diarrhea but those symptoms resolved. She has not had pain like this before. She arrives stable, caox4 speaking clearly. She localizes the pain to the llq and lower mid abdomen. Her abdomen is soft and nondistended, is tender with deep palpation to the llq and mid lower abdomen, no upper abdominal tenderness. Given location of her pain will obtain cbc, cmp, lipase and ct abdomen pelvis to evaluate for possible diverticulitis and also obtain ua. Her abdomen is non distended and has not had vomiting so unlikely sbo. pt feels improved, labs unremarkable. CT shows enlarged left adnexa with complex cystic regtion within it and also enlarged right adnexa. Appendix borderline thickened without stranding, likely reactive due to pelvic findings. She has no rlq tenderness and minimal llq tenderness. Will see if u/s is able to come in for pelvic u/s to evaluate for torsion u/s not definitive to rule out torsion of the sperior ovary per vrad radiologist, pt stable has mild pain with movements. 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 Imaging Data Radiologic Study: Attestation: I personally reviewed and interpreted this imaging study as follows: Imaging: CT Scan Radiologist's impression: 1. Enlarged and medialized left adnexa with complex cystic region within . The finding could be due to hemorrhagic cyst, follow-up with ultrasound is recommended to exclude complex pathology such as adnexal torsion or endometrioma. Right adnexa is also mildly enlarged and prominent and is in expected right lateral position. 2. Hysterectomy. 3. Small fluid in the pelvis which is probably within the physiological range. 4. Appendix is borderline thickened without significant adjacent stranding and is probably reactive due to small pelvic fluid draining to the right lower quadrant. 5. THIS REPORT CONTAINS FINDINGS THAT MAY BE CRITICAL TO PATIENT CARE. The findings were verbally communicated via telephone conference at 4:39 PM EST on 08/27/2022 with Александр Chaney. 6. The findings were acknowledged and understood. Radiologic Study #2: Attestation: I personally reviewed and interpreted this imaging study as follows: Imaging: Ultrasound Radiologist's impression: 1. Left ovary is enlarged with peripheral displaced follicles and central enlarged stoma. There is good vascularity in the inferior portion of the left ovary, however there is a heterogeneous mildly isoechoic to hyperechoic lesion in the superior aspect with diminished blood flow and a hemorrhagic component within. This might represent a mass within the ovary, however this is also concerning for ovarian torsion in particular there is diminished flow within the lesion. In the prior CT exam, the left ovary is midline in position which raises the concern for increased mobility. Gynecological evaluation can be considered, if the patient persists to have pain. 2. Right ovary is mildly enlarged, however demonstrates normal blood flow without evidence of torsion. 3. Hysterectomy 4. THIS REPORT CONTAINS FINDINGS THAT MAY BE CRITICAL TO PATIENT CARE. The findings were verbally communicated via telephone conference at 6:56 PM EST on 08/27/2022 with Александр Chaney. The findings were acknowledged and understood. Sign Out Yes HPI General Mode of arrival: ambulatory. Date/Time Provider Initiated Documentation: 08/27/22 14:51. Limitations to Documentation: no limitations. Information obtained by: patient. History of Present Illness 32 year old F presents to the emergency department with the chief complaint of abdominal pain, described as moderate, Quality is described as sharp, Patient started experiencing this day(s) (2) and it has been constant. No relieving factors improve symptom(s), No exacerbating factors reported . Patient notes no other symptoms.. Patient did receive the following treatments prior to arrival, none Related Data Home Medications Medication Instructions Recorded Confirmed escitalopram oxalate 20 mg tablet 1 tab PO DAILY 08/27/22 08/27/22 Allergies Allergy/AdvReac Type Severity Reaction Status Date / Time orange juice Allergy Itching Verified 08/27/22 14:58 General Stated Complaint: Abd Prob TASH: 3 Review of Systems All systems reviewed & are unremarkable except as noted in HPI and below Constitutional Constitutional: Denies chills, Denies fever(s) and Denies weakness Cardiovascular Cardiovascular: Denies chest pain and Denies dyspnea Respiratory Respiratory: Denies cough and Denies dyspnea Gastrointestinal Gastrointestinal: Denies vomiting Genitourinary Genitourinary: Denies dysuria Musculoskeletal Musculoskeletal: Denies joint swelling Integumentary/Breasts Skin/Breast: Denies rash Neurologic Neurologic: Denies weakness PFSH All Active Problems (Updated 08/27/22 @ 19:36 by Александр Chaney MD) Enlarged ovary (Acute) Abdominal pain (Acute) Heavy periods (Acute) Uterine prolapse (Acute) Medical History Asthma childhod - no symptoms now. Candidiasis of vagina Constipation longstanding. 12/2013 advised stool softeners/senakot during . Family history of diabetes mellitus type I Daughter dx 2yo Migraine Patient is a currently breast-feeding mother (05/09/17) Umbilical hernia without obstruction and without gangrene Surgical History S/P vaginal hysterectomy with bilateral salpingectomy, uterosacral vaginal vault ligament suspension and posterior repair. [place] [facility] [place] Status post primary low transverse section Tonsillectomy wisdom teeth extraction Family History Father , lung Personal history of malignant neoplasm Hyperlipidemia Myocardial infarction Mother No problems noted. Daughter Diabetes Type 1 DM. 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 Date GA/Weeks # Preg Succ Route Wgt Sex Labor Lgth Anesthesia Location Prov Complic 09/30/14 vaginal 4110.[address] Champion 03/29/17 39 No vaginal 4224.079 g Male 3 hours [facility] Akira 08/17/20 37 No 3288.545 g Male Stephon Mcduffie Delivery Date: 06/17/14 Last Updated by: Eulalia Mitchell CNM stripping of membranes Delivery Date: 03/29/17 Last Updated by: Eulalia Mitchell CNM IOL due to macrosomia Delivery Date: 08/17/20 Last Updated by: Zoila Cameron LPN double footling breech Exam Const General: no acute distress Orientation: alert [facility] Head: normal to inspection Ears: external ears normal General nose exam: external nose normal Mouth: moist mucous membranes Eyes General: appearance normal, both eyes and all related structures Neck Neck: normal visual inspection Resp Effort & Inspection: normal respiratory effort and able to speak in complete sentences Cardio Rate: regular rate GI Palpation: soft and tender Skin General skin exam: no rashes or lesions noted Neuro General: patient alert and patient oriented x3 Extrem General: normal to inspection Psych Mental Status: mental status grossly normal Course Vital Signs Vital signs: Vital Signs Temperature 36.7 C 08/27/22 14:54 Pulse 92 H 08/27/22 14:54 Respiratory Rate 16 08/27/22 14:54 Blood Pressure 120/72 08/27/22 14:54 Pulse Oximetry 100 08/27/22 14:54 Temperature 36.7 C 08/27/22 14:54 Temperature Source Temporal Artery Scan 08/27/22 14:54 Pulse 92 H 08/27/22 14:54 Respiratory Rate 16 08/27/22 14:54 Respiratory Effort Non-Labored 08/27/22 14:56 Blood Pressure 120/72 08/27/22 14:54 Blood Pressure Position Sitting 08/27/22 14:54 Pulse Oximetry 100 08/27/22 14:54 Oxygen Delivery Method Room Air 08/27/22 14:54 Oxygen Flow Rate 0 08/27/22 14:54 Pain Level 2 08/27/22 14:54 Comment 08/27/22 14:54
[2022-08-27] MEDS: Normal Saline 1,000 ML 1000 ML IV (15:15)
[2022-08-27 15:22] LABS: Abs Immature Grans 0.03 10^3/uL (0.0-0.06); Absolute Basophil Count 0.03 10^3/uL (0.0-0.2); Absolute Lymphocyte Count 1.84 10^3/uL (1.2-3.4); Absolute Monocyte Count 0.69 10^3/uL (0.1-0.8); Absolute Neutrophil Count 8.02 10^3/uL (1.2-6.7); Basophils % 0.3; Eosinophils % 0.9; HCT 41.1 % (36.0-46.0); HGB 13.1 g/dL (11.2-15.7); Immature Grans % 0.3; Lymphocytes % 17.2; MCH 25.6 pg (27.0-33.0); MCHC 31.9 % (32.0-36.0); MCV 80 fL (80-95); MPV 10.2 fL (8.0-11.0); Monocytes % 6.4; Neutrophils % 74.9; Platelet Count 305 10^3/uL (130-400); RBC 5.12 10^6/uL (3.93-5.22); RDW 13.6 % (11.7-14.6); RDW-SD 39.7 fL; WBC 10.71 10^3/uL (4.4-10.8)
[2022-08-27] MEDS: Ketorolac 15 MG/ML VIAL IVP (15:22)
[2022-08-27 15:23] LABS: Bilirubin Negative (Negative); Blood Negative (Negative); Clarity Sl Cloudy (Clear); Glucose Negative (Negative); Ketones Negative (Negative); Leukocyte Esterase Moderate (Negative); Nitrite Negative (Negative); Specific Gravity >= 1.030 (1.005-1.025); Urobilinogen 0.2 EU/dL (Up TO 0.2); pH 6.5 (5-8)
[2022-08-27 15:30] LABS: Bacteria Many HPF (Negative); C & S Indicated? No/Sq. Contamination; Casts Negative LPF (Negative); Crystals Negative HPF (Negative); Epithelial Cells Many HPF (Negative); Mucus Negative (Negative); RBC 0-2 HPF (0-2)
[2022-08-27 15:36] LABS: ALT 22 U/L (14-59); AST 14 U/L (15-37); Albumin 4.2 g/dL (3.4-5.0); Alkaline Phosphatase 89 U/L (46-116); Anion Gap 8.5 mmol/L (3-11); BUN 14 mg/dL (7-18); Bilirubin, Total 0.3 mg/dL (0.2-1.0); CO2 29.5 mmol/L (21.0-32.0); CREATININE 0.9 mg/dL (0.55-1.02); Chloride 101 mmol/L (98-107); Estimated GFR 87.11 (mL/min/1.73m2); Glucose 113 mg/dL (74-106); Lipase 88 U/L (73-393); Magnesium 2.1 mg/dL (1.8-2.4); Potassium 3.9 mmol/L (3.5-5.1); Sodium 139 mmol/L (136-145); Total Protein 7.9 g/dL (6.4-8.2)
[2022-08-27] MEDS: Omnipaque 350 MG/ML 100 ML BTL IJ (15:56)
[2022-08-27] MEDS: Normal Saline Flush 10 ML SYR IVP (15:57)
[2022-08-27] MEDS: Normal Saline - Diluent 50 ML VIAL IJ (15:57)
--- NOTE | 2022-08-27 16:30 | DI.US_ITS ---
Exam(s) US PELVIS TRANSVAGINAL EXAM: US PELVIS TRANSVAGINAL CLINICAL HISTORY: ?torsion, pelvic pain,. TECHNIQUE: Transabdominal and transvaginal pelvic ultrasound was performed using standard protocol. COMPARISON: CT CT ABDOMEN PELVIS W from 08/27/2022 FINDINGS: UTERUS: Status post hysterectomy. OVARIES: Right: 5 x 3.7 x 3.0 cm Cyst or mass: No suspicious cystic or solid masses. Left: 7 x 2.6 x 4 cm Cyst or mass: There are several peripheral small follicle seen in the left ovary. There is a heterog eneous echogenic lesion in the superior left ovary measuring 4.7 x 3.5 x 5.6 cm. This shows minimal vascularity. Cystic change with internal debris or hemorrhage is seen within the lesion. There is g ood vascularity seen in the inferior portion of the left ovary. DOPPLER: Color: There is normal blood flow seen to the right ovary. CUL-DE-SAC: Free fluid: None. Other: None. IMPRESSION: 1. Status post hysterectomy. 2. Mildly enlarged right ovary however there is normal blood flow and no evidence to suggest torsion. 3. There is an enlarged left ovary with displaced peripheral follicles. There is good vascularity in the inferior portion of the left ovary. In the superior portion there is a complex cystic lesion me asuring 4.7 x 3.5 x 5.6 cm. An ovarian mass cannot be excluded. Complex hemorrhagic cyst should als o be considered. Due to the decreased blood flow torsion cannot be excluded. Gynecologic consult is recommended. DATA REPOSITORY:
--- NOTE | 2022-08-27 16:42 | DI.VRAD_ITS ---
PROCEDURE INFORMATION: Exam: CT Abdomen And Pelvis With Contrast Exam date and time: 08/27/2022 3:41 PM Age: 32 years old Clinical indication: Other: Lower left abdominal pain; Prior surgery; Surgery date: 1-6 months; Surgery type: Hysterectomy TECHNIQUE: Imaging protocol: Computed tomography of the abdomen and pelvis with contrast. Radiation optimization: All CT scans at this facility use at least one of these dose optimization techniques: automated exposure control; mA and/or kV adjustment per patient size (includes targeted exams where dose is matched to clinical indication); or iterative reconstruction. Contrast material: OMNIPAQUE 350; Contrast volume: 100 ml; Contrast route: INTRAVENOUS (IV); COMPARISON: US SOFT TISS ABD WALL/LOW BACK 12/04/2019 8:07 AM FINDINGS: Liver: 1.1 cm cyst in the posterior segment 4 of the liver. Gallbladder and bile ducts: Normal. No calcified stones. No ductal dilation. Pancreas: Normal. No ductal dilation. Spleen: Normal. No splenomegaly. Adrenal glands: Normal. No mass. Kidneys and ureters: There is 0.7 cm cyst noted in the right lower pole kidney. Stomach and bowel: Icho-pp-zhpgyzyv fecal loading noted in the colon. No significant bowel thickening. No bowel obstruction. Appendix: Appendix is borderline thickened measuring up to 7 mm (image 51 series 4) without significant adjacent periappendiceal stranding. Intraperitoneal space: Unremarkable. No free air. No significant fluid collection. Vasculature: Unremarkable. No abdominal aortic aneurysm. Lymph nodes: Unremarkable. No enlarged lymph nodes. Urinary bladder: Unremarkable as visualized. Reproductive: 6.8 x 5.1 cm axial x 5.3 cm CC complex cystic mass or enlarged left ovary noted in the midline pelvis, possibly in the region of the left adnexa (61 series 4). Right adnexa lies in the expected position of the right adnexa and is about 4.4 x 3.1 cm. There is mild fluid noted in the pelvis which extends to the right lower quadrant.. Bones/joints: Unremarkable. No acute fracture. Soft tissues: Unremarkable. IMPRESSION: 1. Enlarged and medialized left adnexa with complex cystic region within . The finding could be due to hemorrhagic cyst, follow-up with ultrasound is recommended to exclude complex pathology such as adnexal torsion or endometrioma. Right adnexa is also mildly enlarged and prominent and is in expected right lateral position. 2. Hysterectomy. 3. Small fluid in the pelvis which is probably within the physiological range. 4. Appendix is borderline thickened without significant adjacent stranding and is probably reactive due to small pelvic fluid draining to the right lower quadrant. 5. THIS REPORT CONTAINS FINDINGS THAT MAY BE CRITICAL TO PATIENT CARE. The findings were verbally communicated via telephone conference at 4:39 PM EST on 08/27/2022 with Александр Chaney. 6. The findings were acknowledged and understood. Dictated and Authenticated by: Gene Flynn MD. Ordering:JESI Fountain MD
--- NOTE | 2022-08-27 19:00 | DI.VRAD_ITS ---
PROCEDURE INFORMATION: Exam: US Pelvis Complete, Transabdominal and US Pelvis, Transvaginal Exam date and time: 08/27/2022 5:01 PM Age: 32 years old Clinical indication: Pain and abnormal findings; Abnormal imaging test; Pelvic pain; Prior surgery; Surgery date: 1-6 months; Surgery type: Hysterectomy TECHNIQUE: Imaging protocol: Real-time complete transabdominal and transvaginal pelvic ultrasound with image documentation. Transvaginal imaging was used for better evaluation of the endometrium, adnexa, and/or cervix. COMPARISON: CT ABDOMEN PELVIS W 08/27/2022 3:41 PM FINDINGS: Uterus: Patient is status post hysterectomy. Right ovary/adnexa: Right ovary 5.0 x 3.7 x 3 cm. There is normal blood flow in and around right ovary. Right ovary is normally placed. Left ovary/adnexa: Left adnexa is 7.0 x 2.6 x 4.0 cm. Left adnexal volume is 38.1 mL. There is enlarged central stroma with peripheral displaced follicles. There is good vascularity in the inferior portion or part of the left ovary. In the superior portion of the left ovary, there is a heterogeneous echogenic lesion with diminished blood flow noted. The lesion measures approximately 4.7 x 3.5 x 5.6 cm. This lesion demonstrates minimal vascularity. Within the lesion, there is a cystic change which might contain internal debris or clot due to hemorrhage within the lesion. Intraperitoneal space: There is mild free fluid in the cul-de-sac and surrounding the left adnexa. Urinary bladder: Normal. IMPRESSION: 1. Left ovary is enlarged with peripheral displaced follicles and central enlarged stoma. There is good vascularity in the inferior portion of the left ovary, however there is a heterogeneous mildly isoechoic to hyperechoic lesion in the superior aspect with diminished blood flow and a hemorrhagic component within. This might represent a mass within the ovary, however this is also concerning for ovarian torsion in particular there is diminished flow within the lesion. In the prior CT exam, the left ovary is midline in position which raises the concern for increased mobility. Gynecological evaluation can be considered, if the patient persists to have pain. 2. Right ovary is mildly enlarged, however demonstrates normal blood flow without evidence of torsion. 3. Hysterectomy 4. THIS REPORT CONTAINS FINDINGS THAT MAY BE CRITICAL TO PATIENT CARE. The findings were verbally communicated via telephone conference at 6:56 PM EST on 08/27/2022 with Александр Chaney. The findings were acknowledged and understood. Dictated and Authenticated by: Gene Flynn MD. Ordering:JESI Fountain MD
[2022-08-27] MEDS: Fosfomycin Tromethamine 3 GM PACKET PO (19:33)
[2022-08-27] MEDS: ACETAMINOPHEN 1,000 MG/100 ML BTL 400 MG IVPB (19:33)
--- NOTE | 2022-08-27 20:03 | GCONE_ITS ---
Date of service: 08/27/22 Time of Service: 20:03 Assessment and Plan Assessment and plan (1) Enlarged ovary: Status: Acute Assessment and plan: The sono reports lack of blood flow to only part of the ovary which is not consistent with a picture of ovarian torsion. I am uncertain as to the exact nature of the ovarian lesion but will plan for close f/u this week with likely repeat imaging. (2) Abdominal pain: Status: Acute Assessment and plan: She does not have a surgical abdomen at this time. Her pain does not seem c/w ovarian torsion as it is not present at rest, only with movement or pressure. There also appears to be bloodflow to part of the ovary. Possible ruptured ovarian cyst vs UTI vs musculoskeletal vs constipation/GI. We discussed these options and she is comfortable with going home tonight and will f/u next week in the office or return to the ED if the pain worsens prior to her appt. History of Present Illness History of Present Illness Chief Complaint: pelvic pain Narrative: Gabriela comes to the ED today complaining of pelvic pain that started 2 days ago. It was mild and midline at the time and felt a little bit crampy. She f elt increased pressure when she needed to urinate but not pain with urination. She had a vaginal hysterectomy with urban gardening specialist/onc at [facility] [place] in Apr for significant uterine prolapse. Both ovaries remain. She denies any unusual vaginal discharge or bleeding. She has not had recent intercourse or any physical trauma. She says the pain has gradually increased though she has not needed to take any medication for it. It is generally ok if she is being still and not pushing on the area but any pressure to the area causes the pain. She feels the pain in the middle when she pushes on the left side. She reports a general h/o constipation but did have a BM yesterday. No significant change in appetite or n/v. Review of Systems All systems reviewed & are unremarkable except as noted in HPI and below Constitutional Constitutional: Denies chills, Denies fever(s) and Denies weakness Cardiovascular Cardiovascular: Denies chest pain and Denies dyspnea Respiratory Respiratory: Denies cough and Denies dyspnea Gastrointestinal Gastrointestinal: Denies vomiting Genitourinary Genitourinary: Denies dysuria Musculoskeletal Musculoskeletal: Denies joint swelling Integumentary/Breasts Skin/Breast: Denies rash Neurologic Neurologic: Denies weakness PFSH All Active Problems (Updated 08/27/22 @ 20:09 by Hawa Bourne MD) Enlarged ovary (Acute) Abdominal pain (Acute) Medical History (Updated 08/27/22 @ 20:09 by Hawa Bourne MD) Asthma childhod - no symptoms now. Constipation longstanding. 12/2013 advised stool softeners/senakot during . Family history of diabetes mellitus type I Daughter dx 2yo Migraine Umbilical hernia without obstruction and without gangrene Surgical History S/P vaginal hysterectomy with bilateral salpingectomy, uterosacral vaginal vault ligament suspension and posterior repair. Done at [facility] [place] 04/20/22 Status post primary low transverse section Tonsillectomy wisdom teeth extraction Family History Father , lung Personal history of malignant neoplasm Hyperlipidemia Myocardial infarction Mother No problems noted. Daughter Diabetes Type 1 DM. 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 Date GA/Weeks # Preg Succ Route Wgt Sex Labor Lgth Anesth esia Location Prov Complic 06/17/14 vaginal 9 lb 1 oz Female [facility] 03/29/17 39 No vaginal 9 lb 5 oz Male 3 hours madelyn Champion 08/17/20 37 No 7 lb 4 oz Male [facility] Delivery Date: 06/17/14 Last Updated by: Eulalia Mitchell CNM stripping of membranes Delivery Date: 03/29/17 Last Updated by: Eulalia Mitchell CNM IOL due to macrosomia Delivery Date: 08/17/20 Last Updated by: Zoila Cameron LPN double footling breech Exam Const General: no acute distress Orientation: alert HENLA Head: normal to inspection Mouth: moist mucous membranes Resp Effort & Inspection: normal respiratory effort and able to speak in complete sentences Cardio Rate: regular rate GI Palpation: soft and tender Other: mod tenderness in central abdomen and left lower side. No rebound or guarding. Neuro General: patient alert and patient oriented x3 Psych Mental Status: mental status grossly normal Results Last Vital Signs Temp 98.1 F 08/27/22 14:54 Pulse 92 H 08/27/22 14:54 Resp 16 08/27/22 14:54 BP 120/72 08/27/22 14:54 Pulse Ox 100 08/27/22 14:54 Labs Result diagrams: 08/27/22 15:15 08/27/22 15:15 Labs: Laboratory Results - last 24 hr 08/27/22 08/27/22 08/27/22 15:02 15:15 15:15 WBC 10.71 RBC 5.12 Hgb 13.1 Hct 41.1 MCV 80 MCH 25.6 L MCHC 31.9 L RDW 13.6 Plt Count 305 MPV 10.2 Immature Gran % 0.3 Neutrophils % 74.9 Lymphocytes % 17.2 Monocytes % 6.4 Eosinophils % 0.9 Basophils % 0.3 Nucleated RBC % 0.0 Absolute Neutrophils 8.02 H Absolute Lymphocytes 1.84 Absolute Monocytes 0.69 Absolute Eosinophils 0.10 Absolute Basophils 0.03 Sodium 139 Potassium 3.9 Chloride 101 Carbon Dioxide 29.5 Anion Gap 8.5 BUN 14 Creatinine 0.9 Est GFR (CKD-EPI 2020) 87.11 Glucose 113 H Calcium 9.0 Magnesium 2.1 Total Bilirubin 0.3 AST 14 L ALT 22 Alkaline Phosphatase 89 Total Protein 7.9 Albumin 4.2 Lipase 88 Urine Color Yellow Urine Clarity Sl Cloudy Urine pH 6.5 Ur Specific [place] >= 1.030 H Urine Protein Negative Urine Ketones Negative Urine Blood Negative Urine Nitrite Negative Urine Bilirubin Negative Urine Urobilinogen 0.2 Ur Leukocyte Esterase Moderate H Urine RBC 0-2 Urine WBC 10-20 H Ur Epithelial Cells Many Urine Crystals Negative Urine Bacteria Many Urine Casts Negative Urine Mucus Negative Ur Culture Indicated? No/Sq. Contamination Urine Glucose Negative Imaging US - pelvic: report reviewed
== END 2022-08-27 20:45 | disposition home or self-care (01) ==
PROVIDERS: Emergency Provider Emergency Medicine
DX: N83.8 Other noninflammatory disorders of ovary, fallopian tube and broad ligament; J45.909 Unspecified asthma, uncomplicated
CPT/HCPCS: 36415; 80053; 83690; 96361; 96374; 96375; 99285; 74177; 76830; 76856; 81003; 81015; 83735; 85025; 87086; 99284; J0131; J1885; J3490

== ENCOUNTER 2022-11-14 19:29 | Emergency (ER) | payer BC, SELFPAY ==
--- NOTE | 2022-11-14 19:45 | DI.RAD_ITS ---
Exam(s) XR KNEE RT 3V AP,LAT,LOUISE EXAM: XR KNEE RT 3V AP,LAT,LOUISE CLINICAL HISTORY: medial knee injury. TECHNIQUE: 2D digital imaging was performed. COMPARISON: No exams were available for comparison FINDINGS: 3 views No evidence of acute fracture. There appears to be a joint effusion which may signify an internal de rangement. Joint space normal. No osseous lesions. IMPRESSION: No acute osseous findings but there is a suggestion of a joint effusion which may signify an internal derangement. Appropriate follow-up is recommended. DATA REPOSITORY: RADIATION DOSE DELIVERED:
[2022-11-14 19:53] VITALS: BP 141/73; PULSE 88; RESP 18; TEMP 37.2; O2SAT 98
[2022-11-14] MEDS: Acetaminophen 500 MG TAB 1000 MG PO (19:56)
--- NOTE | 2022-11-14 20:16 | W.ED.GENAD ---
Discharge Plan Disposition Patient Disposition: Home Discharge Details Clinical Impression: Right knee sprain Primary Care Provider: Matheus Ott ED Provider: Edmond Kim Home Meds and New Rx's Prescriptions: Continued escitalopram oxalate 20 mg tablet 1 tab PO DAILY Patient Comments: TAKE ONE TABLET BY MOUTH EVERY DAY Discharge Instructions Instructions: Knee Sprain (ED), R.I.C.E. Treatment (ED) Additional Instructions: You may continue to take belc-cby-fucquky pain medication as discussed. Please use crutches for the next 2 to 3 days and then slowly advance your activity as tolerated including weightbearing activities. You may also apply ice to help with swelling. You have been placed on a orthopedic follow-up list and please contact their office tomorrow afternoon for arrangement of your follow-up appointment. If you develop any new or significant worsening of symptoms feel free to return the emergency department for reassessment Referrals: [facility] [Provider Group] (Call the office tomorrow for arrangement of follow-up appointment) Medical Decision Making Patient presenting to the emergency department for chief complaint of right knee injury. She states she was skiing and her leg went backwards during the fall going underneath her. Since then she has been unable to bear any weight on the leg and states significant pain with twisting type motion. Patient denies any other injury or trauma. Physical exam shows some joint line tenderness to both medial and lateral aspects but slightly more noted medial, more pain with valgus testing, no findings with anterior posterior drawer, pulse sensation and movement intact distal to injury. We will plan on performing radiological imaging given that patient cannot weight-bear. Suspect ligamentous injury versus meniscus. Due to patient's significant amount of pain it is difficult to fully stress the ligaments. Pending results we will give acetaminophen given that patient already took ibuprofen prior to arrival. Review of radiological imaging shows joint effusion without fracture or dislocation. Patient placed in hinged knee brace and on crutches, discussed with patient icing the injury, and weightbearing as tolerated of note in the emergency department even with brace patient was unable to perform any weightbearing activities given significant pain. Patient was placed upon the orthopedic follow-up list. After discussion of diagnosis and plan of care patient has no further needs, questions, or concerns and states clear understanding to return to the emergency department for any worsening symptoms. This documentation was generated using [employer] system, please disregard any oddities of phrase or misspellings. Imaging Data Radiologic Study: Imaging: X-Ray Radiologist's impression: Exam(s) PROCEDURE INFORMATION: Exam: XR Right Knee Exam date and time: 11/14/2022 8:05 PM Age: 32 years old Clinical indication: Other: Medial knee injury TECHNIQUE: Imaging protocol: Radiologic exam of the right knee. Views: 3 views. COMPARISON: No relevant prior studies available. FINDINGS: Bones/joints: Joint effusion noted. No acute fracture or dislocation Soft tissues: Normal. IMPRESSION: Joint effusion without acute fracture or dislocation HPI General Mode of arrival: wheelchair. Date/Time Provider Initiated Documentation: 11/14/22 19:47. Limitations to Documentation: no limitations. Information obtained by: patient, family and RN notes reviewed. History of Present Illness 32 year old F presents to the emergency department with the chief complaint of right knee injury , described as moderate and severe, with intensity rated at 8. Quality is described as sharp, and is localized to the right and lower extremity. Patient reports no radiation. Patient started experiencing this hour(s) (5) and it has been constant. Immobilization improves symptom(s), Movement worsens symptoms . Patient notes no other symptoms.. Patient did receive the following treatments prior to arrival, NSAID Related Data Home Medications Medication Instructions Recorded Confirmed escitalopram oxalate 20 mg tablet 1 tab PO DAILY 08/27/22 11/14/22 Allergies Allergy/AdvReac Type Severity Reaction Status Date / Time orange juice Allergy Itching Verified 11/14/22 19:59 General Stated Complaint: Orthopedic TASH: 3 Review of Systems Narrative: 6 systems reviewed and unremarkable except what is marked below. Musculoskeletal Musculoskeletal: Reports as per HPI, Reports arthralgias, Reports joint swelling and Reports limited range of motion PFSH All Active Problems (Updated 11/14/22 @ 20:36 by Edomnd Kim NP) Right knee sprain (Acute) Unspecified appendicitis (Acute) Dermatofibroma (Acute) Lentigines (Acute) Seborrheic keratosis (Acute) Anxiety (Chronic) Vulvar intraepithelial neoplasia (Acute) Near syncope (Acute) Restless legs (Acute) Acute stress reaction (Acute) Medical History (Updated 11/14/22 @ 20:36 by Edmond Kim NP) Asthma childhod - no symptoms now. Constipation longstanding. 12/2013 advised stool softeners/senakot during . Family history of diabetes mellitus type I Daughter dx 2yo Hx of atypical nevus Migraine Umbilical hernia without obstruction and without gangrene Surgical History S/P vaginal hysterectomy with bilateral salpingectomy, uterosacral vaginal vault ligament suspension and posterior repair. Done at [facility] [place] 04[place]22 Status post hernia repair Status post primary low transverse section Tonsillectomy wisdom teeth extraction Family History Father , 64 Personal history of malignant neoplasm Hyperlipidemia Myocardial infarction Cancer Lung Depression Heart disease Stroke Mother Depression Daughter Diabetes Type 1 DM. Sister No problems noted. Sister Cancer Leukemia Brother Depression Substance use disorder Brother No problems noted. Brother No problems noted. Son Asthma Son No problems noted. Maternal Grandfather , 60's Diabetes Heart disease Hyperlipidemia Paternal Grandfather , 80's Cancer Prostate Maternal Grandmother , 70's Cancer Lung Paternal Grandmother Cancer Cervical Stroke Social History Smoking/Tobacco Use Status: Former Tobacco Use tobacco type: cigarettes Quit Date: 09/18/13 Tobacco: How many years used: 8 Second Hand Exposure: Yes Smoking risk assessment performed?: Yes Alcohol Intake: current Alcohol Intake frequency: a few times a month Alcohol type: hard liquor Drug use: Daily Substance use type: marijuana Adopted: No Caregiver/Support person: No Foster care: No Household members: spouse and children Housing: house Number of Children: 3 Communication Needs: None Do you need help understanding health information?: Never 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 Pets and animals: Yes (Bunny) Pets and animals: dog(s) Sexually active: Yes Do you think of yourself as: straight/heterosexual Current gender identity: female What is your relationship status?: How often do you talk on the phone with friends or family?: three or more times per week How often do you get together with friends or relatives?: three or more times per week How often do you attend jehovah's witness or oriental orthodox services?: decline to answer Do you belong to any clubs or organized social groups?: no Panel score (0-1 are the most socially isolated patients): 2 What type of physical activity do you participate in: none Frequency: does not exercise Regla/Mandaen: Church Special regla needs: No Seatbelt use: always Helmet use: Yes Helmet use: always Drive intox or ride w/intox taxicab driver: No Do you feel safe at home: Yes Do you feel safe in your relationship?: Yes Female Reproductive History Menstrual control method: permanent sterilization (hysterectomy) History History 3 Para 3 Hx # Term Pregnancies 3 Multiple births Hx # Pregnancies Ectopic pregnancies AB induced Hx Number of Living Children 3 AB spontaneous Past Pregnancies Del. Date GA/Weeks # Preg Succ Route Wgt Sex Labor Lgth Anesthesia Location [facility] 06/17/14 vaginal 4110.681 g Female [facility] 03/29/17 39 No vaginal 4224.079 g Male 3 hours [facility] Akira 08/17/20 37 No 3288.545 g Male [facility] Delivery Date: 06/17/14 Last Updated by: Eulalia Mitchell CNM stripping of membranes Delivery Date: 03/29/17 Last Updated by: Eulalia Mitchell CNM IOL due to macrosomia Delivery Date: 08/17/20 Last Updated by: Zoila Cameron LPN double footling breech Exam Const General: cooperative, no acute distress and not ill appearing Orientation: alert, awake and oriented x3 Resp Effort & Inspection: normal respiratory effort, able to speak in complete sentences and no respiratory distress Cardio Rate: regular rate Rhythm: regular rhythm Pulses: normal peripheral pulses Skin General skin exam: no rashes or lesions noted Neuro General: patient alert, patient awake, patient oriented x3, moves all extremities and no focal motor deficits Sensory Exam: no sensory deficits noted Extrem General: normal exam except as noted Right lower extremity: knee Details: tenderness Location: of the medial joint line and of the lateral joint line, abnormal ROM Details: pain with active ROM during and pain with passive ROM during; able to extend lower leg actively, knee ligament exam normal Details: anterior drawer test normal, posterior drawer test normal and varus stress test normal and knee ligament exam abnormal Details: valgus stress test normal and pain with axial loading Course Vital Signs Vital signs: Vital Signs Temperature 37.2 C 11/14/22 19:53 Pulse 88 11/14/22 19:53 Respiratory Rate 18 11/14/22 19:53 Blood Pressure 141/73 H 11/14/22 19:53 Pulse Oximetry 98 11/14/22 19:53 Temperature 37.2 C 11/14/22 19:53 Temperature Source Temporal Artery Scan 11/14/22 19:53 Pulse 88 11/14/22 19:53 Respiratory Rate 18 11/14/22 19:53 Respiratory Effort Normal 11/14/22 19:47 Blood Pressure 141/73 H 11/14/22 19:53 Pulse Oximetry 98 11/14/22 19:53 Oxygen Delivery Method Room Air 11/14/22 19:53 Oxygen Flow Rate 0 11/14/22 19:53
--- NOTE | 2022-11-14 20:23 | DI.VRAD_ITS ---
PROCEDURE INFORMATION: Exam: XR Right Knee Exam date and time: 11/14/2022 8:05 PM Age: 32 years old Clinical indication: Other: Medial knee injury TECHNIQUE: Imaging protocol: Radiologic exam of the right knee. Views: 3 views. COMPARISON: No relevant prior studies available. FINDINGS: Bones/joints: Joint effusion noted. No acute fracture or dislocation Soft tissues: Normal. IMPRESSION: Joint effusion without acute fracture or dislocation Dictated and Authenticated by: Jaxson Leon MD. Ordering:LEXI Pruitt MD
[2022-11-14 20:50] VITALS: BP 129/69; PULSE 76; RESP 16; TEMP 36.4; O2SAT 97
== END 2022-11-14 20:52 | disposition home or self-care (01) ==
PROVIDERS: Emergency Provider Nurse Practitioner Family; PCP Nurse Practitioner Family
DX: S83.91XA Sprain of unspecified site of right knee, initial encounter (principal); W19.XXXA Unspecified fall, initial encounter; X50.1XXA Overexertion from prolonged static or awkward postures, initial encounter; Y93.23 Activity, snow (alpine) (downhill) skiing, snowboarding, sledding, tobogganing and snow tubing
CPT/HCPCS: 73562; 99283

== ENCOUNTER 2023-07-21 21:22 | Outpatient (REF) | payer BC, SELFPAY | END 2023-07-21 21:23 | disposition home or self-care (01) | LOC: LBN 21:22 | PROVIDERS: PCP Nurse Practitioner Family; Visit Provider Physician Assistant | DX: H66.92 Otitis media, unspecified, left ear (principal); H72.92 Unspecified perforation of tympanic membrane, left ear | CPT/HCPCS: 87070; 87205 ==

== ENCOUNTER 2024-12-12 02:43 | Outpatient (CLI) | payer OTHER, SELFPAY ==
[2024-12-12 12:57] LABS: ALT 22 U/L (14-59); AST 13 U/L (15-37); Albumin 4.5 g/dL (3.4-5.0); Alkaline Phosphatase 78 U/L (46-116); Anion Gap 10.8 mmol/L (3-11); BUN 19 mg/dL (7-18); Bilirubin, Total 0.7 mg/dL (0.2-1.0); CO2 28.2 mmol/L (21.0-32.0); CREATININE 0.9 mg/dL (0.55-1.02); Calcium 9.6 mg/dL (8.5-10.1); Chloride 103 mmol/L (98-107); Estimated GFR 86.03 (mL/min/1.73m2); Glucose 80 mg/dL (74-106); Potassium 4.7 mmol/L (3.5-5.1); Sodium 142 mmol/L (136-145); Total Protein 7.8 g/dL (6.4-8.2)
[2024-12-18 18:16] LABS: Apolipoprotein B, Serum 89 mg/dL (48-124); Beta VLDL Cholesterol Not Detected mg/dL (<15); Beta VLDL Triglycerides Not Detected mg/dL (<15); Cholesterol, Total, CDC 183 mg/dL; Chylomicron Cholesterol Not Detected; Chylomicron Triglycerides Not Detected; HDL Cholesterol, CDC 56 mg/dL (>=50); Interpretation Normal; LDL Cholesterol 110 mg/dL; LDL Triglycerides 29 mg/dL (<=50); Lp(a) Cholesterol <5 mg/dL (<5); LpX Not detected; Triglycerides, CDC 73 mg/dL; VLDL Cholesterol 17 mg/dL (<30); VLDL Triglycerides 27 mg/dL (<120)
== END 2024-12-12 02:44 | disposition home or self-care (01) ==
LOC: LOS 02:43
PROVIDERS: PCP Nurse Practitioner Family; Visit Provider Nurse Practitioner Family
DX: Z13.220 Encounter for screening for lipoid disorders (principal)
CPT/HCPCS: 36415; 80053; 80061; 82172; 82664